=== PATIENT | female | born 1990 | race Caucasian/White ===

== ENCOUNTER 2020-03-19 13:26 | Emergency (ER) | payer SELFPAY | END 2020-03-19 14:00 | LOC: BURERS 13:26 | DX: Z02.89 Encounter for other administrative examinations (principal); F20.9 Schizophrenia, unspecified; F41.9 Anxiety disorder, unspecified; F31.9 Bipolar disorder, unspecified; I10 Essential (primary) hypertension; F17.210 Nicotine dependence, cigarettes, uncomplicated; Z79.899 Other long term (current) drug therapy | CPT/HCPCS: 99283 ==